=== PATIENT | male | born 1955 | race Two or more races ===

== ENCOUNTER 2023-06-10 10:43 | Emergency (ER) | payer OTHER ==
[~2023-06-10] VITALS: Ht 157.5 cm; Wt 71.7 kg
[2023-06-10 13:44] LABS: HEMATOCRIT 43.6 % (39.0-48.0); HEMOGLOBIN 14.8 g/dL (13-16.00); MEAN CELL VOLUME 88.1 fL (80.0-100.00); MEAN CORPUSCULAR HEMOGLOBIN 29.8 pg (27.00-32.0); MEAN CORPUSCULAR HGB CONC 33.9 g/dl (32.0-36.0); PLATELET COUNT 278 K/uL (150-450); RED BLOOD COUNT 4.95 M/uL (4.00-6.00); RED CELL DISTRIBUTION WIDTH 13.2 % (11.5-14.5)
[2023-06-10 13:58] LABS: URINE APPEARANCE Clear; URINE BILIRRUBIN Negative (NEGATIVE); URINE BLOOD Trace; URINE COLOR Yellow; URINE GLUCOSE Negative (NEGATIVE); URINE LEUKOCYTE Negative; URINE NITRATE Negative; URINE PROTEIN Negative (NEGATIVE)
[2023-06-10 14:01] LABS: URINE EPITHELIAL CELLS 3.8 uL (0.0-38.8); URINE RBC 11.9 uL (0.0-20.8); URINE WBC 5.7 uL (0.0-23.2)
[2023-06-10 14:19] LABS: ALBUMIN 3.7 gm/dL (3.4-5.0); BILIRUBIN TOTAL 0.39 mg/dL (0.3-1.2); CALCIUM 9.2 mg/dL (8.5-10.1); CREATININE SERUM 1.03 mg/dL (0.70-1.30); GFR 72.48; GLOBULINA 4.5 G/DL (2.4-3.5); POTASSIUM 4.04 mEq/L (3.5-5.1); TOTAL PROTEIN 8.2 gm/dL (6.4-8.2); TSH 0.954 uIU/mL (0.358-3.74)
== END 2023-06-10 17:25 ==
LOC: ER 10:43
PROVIDERS: General Practice
DX: R03.0 Elevated blood-pressure reading, without diagnosis of hypertension (principal)

== ENCOUNTER → 2023-12-06 06:07 | Outpatient (CLI) | payer OTHER ==
[2023-12-06 07:16] LABS: HEMATOCRIT 38.5 % (39.0-48.0); HEMOGLOBIN 13.3 g/dL (13-16.00); MEAN CELL VOLUME 87.7 fL (80.0-100.00); MEAN CORPUSCULAR HEMOGLOBIN 30.3 pg (27.00-32.0); MEAN CORPUSCULAR HGB CONC 34.6 g/dl (32.0-36.0); PLATELET COUNT 263 K/uL (150-450); RED BLOOD COUNT 4.39 M/uL (4.00-6.00); RED CELL DISTRIBUTION WIDTH 13.2 % (11.5-14.5)
[2023-12-06 07:17] LABS: PH,URINE 5.5 (5.0-8.0); URINE APPEARANCE Clear; URINE BILIRRUBIN Negative (NEGATIVE); URINE BLOOD Negative; URINE COLOR Yellow; URINE GLUCOSE Negative (NEGATIVE); URINE KETONE Negative (NEGATIVE); URINE LEUKOCYTE Negative; URINE NITRATE Negative; URINE PROTEIN Negative (NEGATIVE); URINE UROBILINOGEN 0.2 E.U./dl
[2023-12-06 07:21] LABS: URINE BACTERIA 30.2 uL (0.0-1933)
[2023-12-06 07:28] LABS: URINE EPITHELIAL CELLS 0.6 uL (0.0-38.8)
[2023-12-06 08:01] LABS: ALBUMIN 3.6 gm/dL (3.4-5.0); BILIRUBIN TOTAL 0.35 mg/dL (0.3-1.2); CALCIUM 8.8 mg/dL (8.5-10.1); CREATININE SERUM 0.88 mg/dL (0.70-1.30); GFR 86.91; GLOBULINA 3.6 G/DL (2.4-3.5); POTASSIUM 4.27 mEq/L (3.5-5.1); TOTAL PROTEIN 7.2 gm/dL (6.4-8.2)
== END | disposition home or self-care (01) ==
LOC: LAB 06:07
PROVIDERS: ATTEND Internal Medicine
DX: E55.9 Vitamin D deficiency, unspecified (principal); N41.0 Acute prostatitis; I10 Essential (primary) hypertension; E78.9 Disorder of lipoprotein metabolism, unspecified; Z12.11 Encounter for screening for malignant neoplasm of colon

== ENCOUNTER 2024-01-11 06:12 | Outpatient (CLI) | payer OTHER | END 2024-01-11 06:13 | disposition home or self-care (01) | LOC: LAB 06:12 | PROVIDERS: ATTEND Urology | DX: R97.20 Elevated prostate specific antigen [PSA] (principal) ==

== ENCOUNTER 2024-03-10 06:26 | Outpatient (CLI) | payer OTHER ==
[2024-03-10 07:30] LABS: HEMATOCRIT 39.5 % (39.0-48.0); HEMOGLOBIN 13.3 g/dL (13-16.00); MEAN CELL VOLUME 89.8 fL (80.0-100.00); MEAN CORPUSCULAR HEMOGLOBIN 30.3 pg (27.00-32.0); MEAN CORPUSCULAR HGB CONC 33.7 g/dl (32.0-36.0); PLATELET COUNT 255 K/uL (150-450)
[2024-03-10 07:32] LABS: URINE APPEARANCE Clear; URINE BILIRRUBIN Negative (NEGATIVE); URINE BLOOD Negative; URINE COLOR Yellow; URINE GLUCOSE Negative (NEGATIVE); URINE KETONE Negative (NEGATIVE); URINE LEUKOCYTE Negative; URINE NITRATE Negative; URINE PROTEIN Negative (NEGATIVE); URINE UROBILINOGEN 0.2 E.U./dl
[2024-03-10 07:43] LABS: URINE RBC 3.8 uL (0.0-20.8)
[2024-03-10 07:44] LABS: URINE BACTERIA 3.7 uL (0.0-1933); URINE EPITHELIAL CELLS 0.4 uL (0.0-38.8)
[2024-03-10 08:15] LABS: ALBUMIN 3.7 gm/dL (3.4-5.0); BILIRUBIN TOTAL 0.38 mg/dL (0.3-1.2); CHOL HDL RATIO 4.4 (0-5.0); CREATININE SERUM 0.96 mg/dL (0.70-1.30); GFR 78.37; GLOBULINA 3.7 G/DL (2.4-3.5); POTASSIUM 4.37 mEq/L (3.5-5.1); TOTAL PROTEIN 7.4 gm/dL (6.4-8.2)
== END 2024-03-10 06:32 | disposition home or self-care (01) ==
LOC: LAB 06:26
PROVIDERS: ATTEND Internal Medicine
DX: E55.9 Vitamin D deficiency, unspecified (principal); I10 Essential (primary) hypertension; N41.0 Acute prostatitis; E78.9 Disorder of lipoprotein metabolism, unspecified; Z12.11 Encounter for screening for malignant neoplasm of colon

== ENCOUNTER 2024-03-20 09:22 | Outpatient (CLI) | payer OTHER | END 2024-03-20 09:38 | disposition home or self-care (01) | LOC: TOM 09:22 | DX: R97.20 Elevated prostate specific antigen [PSA] (principal); C61 Malignant neoplasm of prostate ==

== ENCOUNTER 2024-06-16 06:13 | Outpatient (CLI) | payer OTHER ==
[2024-06-16 07:10] LABS: PH,URINE 5.5 (5.0-8.0); URINE APPEARANCE Clear; URINE BILIRRUBIN Negative (NEGATIVE); URINE BLOOD Negative; URINE COLOR Yellow; URINE GLUCOSE Negative (NEGATIVE); URINE KETONE Negative (NEGATIVE); URINE LEUKOCYTE Negative; URINE NITRATE Negative; URINE PROTEIN Negative (NEGATIVE); URINE UROBILINOGEN 0.2 E.U./dl
[2024-06-16 07:11] LABS: URINE BACTERIA 8.5 uL (0.0-1933); URINE RBC 4.4 uL (0.0-20.8); URINE WBC 2.3 uL (0.0-23.2)
[2024-06-16 07:19] LABS: URINE EPITHELIAL CELLS 0.1 uL (0.0-38.8)
[2024-06-16 07:32] LABS: HEMATOCRIT 41.2 % (39.0-48.0); HEMOGLOBIN 14.2 g/dL (13-16.00); MEAN CELL VOLUME 88.8 fL (80.0-100.00); MEAN CORPUSCULAR HEMOGLOBIN 30.6 pg (27.00-32.0); MEAN CORPUSCULAR HGB CONC 34.5 g/dl (32.0-36.0); PLATELET COUNT 258 K/uL (150-450); RED BLOOD COUNT 4.64 M/uL (4.00-6.00)
[2024-06-16 07:56] LABS: ALBUMIN 3.6 gm/dL (3.4-5.0); BILIRUBIN TOTAL 0.48 mg/dL (0.3-1.2); CALCIUM 9.2 mg/dL (8.5-10.1); CREATININE SERUM 0.91 mg/dL (0.70-1.30); GFR 83.36; GLOBULINA 3.9 G/DL (2.4-3.5); POTASSIUM 4.51 mEq/L (3.5-5.1); TOTAL PROTEIN 7.5 gm/dL (6.4-8.2)
== END 2024-06-16 06:17 | disposition home or self-care (01) ==
LOC: LAB 06:13
PROVIDERS: ATTEND Internal Medicine
DX: I10 Essential (primary) hypertension (principal); E55.9 Vitamin D deficiency, unspecified; N41.0 Acute prostatitis; E78.9 Disorder of lipoprotein metabolism, unspecified; R97.20 Elevated prostate specific antigen [PSA]; Z12.11 Encounter for screening for malignant neoplasm of colon

== ENCOUNTER 2024-06-30 06:22 | Outpatient (CLI) | payer OTHER ==
[2024-06-30 07:22] LABS: HEMATOCRIT 40.4 % (39.0-48.0); HEMOGLOBIN 13.8 g/dL (13-16.00); MEAN CORPUSCULAR HEMOGLOBIN 30.4 pg (27.00-32.0); MEAN CORPUSCULAR HGB CONC 34.1 g/dl (32.0-36.0); PLATELET COUNT 246 K/uL (150-450); RED BLOOD COUNT 4.54 M/uL (4.00-6.00); RED CELL DISTRIBUTION WIDTH 12.7 % (11.5-14.5)
[2024-06-30 07:30] LABS: PH,URINE 7.5 (5.0-8.0); URINE APPEARANCE Clear; URINE BILIRRUBIN Negative (NEGATIVE); URINE BLOOD Negative; URINE COLOR Yellow; URINE GLUCOSE Negative (NEGATIVE); URINE KETONE Negative (NEGATIVE); URINE LEUKOCYTE Negative; URINE NITRATE Negative; URINE PROTEIN Negative (NEGATIVE); URINE UROBILINOGEN 0.2 E.U./dl
[2024-06-30 07:32] LABS: URINE BACTERIA 14.6 uL (0.0-1933); URINE EPITHELIAL CELLS 2.1 uL (0.0-38.8); URINE RBC 7.5 uL (0.0-20.8); URINE WBC 2.9 uL (0.0-23.2)
[2024-06-30 07:56] LABS: INR 0.99; PARTIAL THROMBOPLASTIN TIME 25.1 SECONDS (22.0-34.0); PROTHROMBIN TIME 10.8 SECONDS (9.0-11.5)
[2024-06-30 08:29] LABS: ALBUMIN 3.5 gm/dL (3.4-5.0); BILIRUBIN TOTAL 0.5 mg/dL (0.3-1.2); CALCIUM 8.9 mg/dL (8.5-10.1); CREATININE SERUM 0.9 mg/dL (0.70-1.30); GFR 84.43; GLOBULINA 3.5 G/DL (2.4-3.5); POTASSIUM 4.95 mEq/L (3.5-5.1)
[2024-06-30 08:34] LABS: PROSTATIC SPECIFIC ANTIGEN 10.2 NG/ML (0.010-4.00)
[2024-06-30 09:42] LABS: RH POSITIVE
[2024-07-01 12:09] LABS: % FREE PSA 7.6 % (.); free psa 0.7 ng/mL; total psa 9.2 ng/mL (0.0-4.0)
== END 2024-06-30 06:25 | disposition home or self-care (01) ==
LOC: LAB 06:22
DX: C61 Malignant neoplasm of prostate (principal)

== ENCOUNTER → 2024-09-23 06:18 | Outpatient (CLI) | payer OTHER ==
[2024-09-23 07:15] LABS: BASO % 0.4 % (0.1-1.2); EOS # 0.36 (0.04-0.54); EOS % 4.7 % (0.7-7.0); HEMATOCRIT 39.1 % (40.1-51.0); LYMPH # 2.45 (1.18-3.74); LYMPH % 32.2 % (19.3-53.1); MEAN CORPUSCULAR HEMOGLOBIN 29.3 pg (25.6-32.2); MONO # 0.77 (0.24-0.82); MONO % 10.1 % (4.7-12.5); NEUT # 3.99 (1.56-6.13); NEUT % 52.3 % (34.0-71.1); PLATELET COUNT 265 K/uL (163-369); RED BLOOD COUNT 4.44 M/uL (4.63-6.08); RED CELL DISTRIBUTION WIDTH 11.9 % (11.6-14.4)
[2024-09-23 07:58] LABS: ALBUMIN 3.6 gm/dL (3.4-5.0); BILIRUBIN TOTAL 0.36 mg/dL (0.3-1.2); CALCIUM 8.9 mg/dL (8.5-10.1); CHOL HDL RATIO 3.6 (0-5.0); CREATININE SERUM 1.12 mg/dL (0.70-1.30); GFR 65.59; GLOBULINA 3.5 G/DL (2.4-3.5); POTASSIUM 4.91 mEq/L (3.5-5.1); TOTAL PROTEIN 7.1 gm/dL (6.4-8.2)
== END | disposition home or self-care (01) ==
LOC: LAB 06:18
PROVIDERS: ATTEND Internal Medicine
DX: E55.9 Vitamin D deficiency, unspecified (principal); N41.0 Acute prostatitis; I10 Essential (primary) hypertension; E78.9 Disorder of lipoprotein metabolism, unspecified; R97.20 Elevated prostate specific antigen [PSA]; Z12.11 Encounter for screening for malignant neoplasm of colon

== ENCOUNTER 2024-11-24 06:14 | Outpatient (CLI) | payer OTHER ==
[2024-11-24 07:19] LABS: URINE APPEARANCE Clear; URINE BILIRRUBIN Negative (NEGATIVE); URINE BLOOD Negative; URINE COLOR Yellow; URINE GLUCOSE Negative (NEGATIVE); URINE KETONE Negative (NEGATIVE); URINE LEUKOCYTE Negative; URINE NITRATE Negative; URINE PROTEIN Negative (NEGATIVE); URINE UROBILINOGEN 0.2 E.U./dl
[2024-11-24 07:24] LABS: URINE EPITHELIAL CELLS 1.5 uL (0.0-38.8); URINE RBC 3.3 uL (0.0-20.8); URINE WBC 1.9 uL (0.0-23.2)
[2024-11-24 07:25] LABS: URINE BACTERIA 2.4 uL (0.0-1933); URINE CAST 0.00 uL (0.0-1.40)
[2024-11-26 17:12] LABS: % FREE PSA 8.6 % (.)
== END 2024-11-24 06:18 | disposition home or self-care (01) ==
LOC: LAB 06:14
PROVIDERS: ATTEND Urology
DX: C61 Malignant neoplasm of prostate (principal)

== ENCOUNTER → 2024-12-16 06:06 | Outpatient (CLI) | payer OTHER ==
[2024-12-16 07:05] LABS: BASO % 0.5 % (0.1-1.2); EOS # 0.23 (0.04-0.54); EOS % 3.1 % (0.7-7.0); LYMPH # 2.40 (1.18-3.74); LYMPH % 32.4 % (19.3-53.1); MEAN PLATELET VOLUME 11.00 fl (9.4-12.4); MONO # 0.75 (0.24-0.82); MONO % 10.1 % (4.7-12.5); NEUT # 3.96 (1.56-6.13); NEUT % 53.6 % (34.0-71.1); RED CELL DISTRIBUTION WIDTH 11.7 % (11.6-14.4)
[2024-12-16 07:15] LABS: URINE APPEARANCE Clear; URINE BILIRRUBIN Negative (NEGATIVE); URINE BLOOD Negative; URINE COLOR Yellow; URINE GLUCOSE Negative (NEGATIVE); URINE KETONE Negative (NEGATIVE); URINE LEUKOCYTE Negative; URINE NITRATE Negative; URINE PROTEIN Negative (NEGATIVE); URINE UROBILINOGEN 0.2 E.U./dl
[2024-12-16 07:17] LABS: URINE BACTERIA 9.5 uL (0.0-1933); URINE RBC 4.6 uL (0.0-20.8)
[2024-12-16 07:42] LABS: URINE CAST 0.00 uL (0.0-1.40); URINE EPITHELIAL CELLS 0.1 uL (0.0-38.8); URINE WBC 1.2 uL (0.0-23.2)
[2024-12-16 08:38] LABS: BUN CREA RATIO 14.0 (7.0-25.0); CREATININE SERUM 1.1 mg/dL (0.70-1.30); GFR 66.97; GLUCOSE FASTING 110.0 mg/dL (65-100); OSMOLALITY SERUM 283.0 MOSM/KG (275-295)
[2024-12-16 08:39] LABS: ALT/SGPT 28.0 U/L (12-78); AST/SGOT 13.0 U/L (15-37); BILIRUBIN TOTAL 0.48 mg/dL (0.3-1.2); CHOL HDL RATIO 5.2 (0-5.0); GLOBULINA 4.0 G/DL (2.4-3.5); HDL 40.0 mg/dl (40-60); LDL 126.0 mg/dl (0-130); PROSTATIC SPECIFIC ANTIGEN 11.0 NG/ML (0.010-4.00); VLDL 39.0 (0-39)
== END | disposition home or self-care (01) ==
LOC: LAB 06:06
PROVIDERS: ATTEND Internal Medicine
DX: I10 Essential (primary) hypertension (principal); E55.9 Vitamin D deficiency, unspecified; N41.0 Acute prostatitis; E78.9 Disorder of lipoprotein metabolism, unspecified; R97.20 Elevated prostate specific antigen [PSA]; Z12.11 Encounter for screening for malignant neoplasm of colon

== ENCOUNTER 2025-01-13 13:56 | Emergency (ER) | payer OTHER ==
[~2025-01-13] VITALS: Ht 157.5 cm; Wt 69.9 kg
[2025-01-13] MEDS ORDERED: LISINOPRIL10 MG PO (15:48)
== END 2025-01-13 17:34 | disposition home or self-care (01) ==
LOC: ER 13:56
DX: L02.221 Furuncle of abdominal wall (principal)

== ENCOUNTER 2025-03-30 06:37 | Outpatient (CLI) | payer OTHER ==
[~2025-03-30 06:37] MED LIST: LISINOPRIL10 MG PO
[2025-03-30 07:46] LABS: URINE APPEARANCE Clear; URINE BILIRRUBIN Negative (NEGATIVE); URINE BLOOD Negative; URINE COLOR Yellow; URINE GLUCOSE Negative (NEGATIVE); URINE KETONE Negative (NEGATIVE); URINE LEUKOCYTE Trace; URINE NITRATE Negative; URINE PROTEIN Negative (NEGATIVE); URINE UROBILINOGEN 0.2 E.U./dl
[2025-03-30 07:48] LABS: BASO % 0.4 % (0.1-1.2); EOS # 0.27 (0.04-0.54); EOS % 3.4 % (0.7-7.0); LYMPH # 2.54 (1.18-3.74); LYMPH % 32.0 % (19.3-53.1); MEAN PLATELET VOLUME 10.10 fl (9.4-12.4); MONO # 0.76 (0.24-0.82); MONO % 9.6 % (4.7-12.5); NEUT # 4.32 (1.56-6.13); NEUT % 54.5 % (34.0-71.1); RED CELL DISTRIBUTION WIDTH 11.6 % (11.6-14.4)
[2025-03-30 07:50] LABS: URINE BACTERIA 16.7 uL (0.0-1933); URINE RBC 6.3 uL (0.0-20.8); URINE WBC 15.6 uL (0.0-23.2)
[2025-03-30 07:56] LABS: URINE CAST 0.00 uL (0.0-1.40); URINE EPITHELIAL CELLS 1.3 uL (0.0-38.8)
[2025-03-30 08:30] LABS: ALT/SGPT 34.0 U/L (12-78); AST/SGOT 14.0 U/L (15-37); BILIRUBIN TOTAL 0.41 mg/dL (0.3-1.2); BUN CREA RATIO 24.0 (7.0-25.0); CHOL HDL RATIO 4.7 (0-5.0); CREATININE SERUM 0.97 mg/dL (0.70-1.30); GFR 77.2; GLOBULINA 3.9 G/DL (2.4-3.5); GLUCOSE FASTING 110.0 mg/dL (65-100); HDL 46.0 mg/dl (40-60); LDL 136.0 mg/dl (0-130); OSMOLALITY SERUM 286.0 MOSM/KG (275-295); VLDL 34.0 (0-39)
== END 2025-03-30 06:44 | disposition home or self-care (01) ==
LOC: LAB 06:37
PROVIDERS: ATTEND Internal Medicine
DX: I10 Essential (primary) hypertension (principal); E55.9 Vitamin D deficiency, unspecified; N41.0 Acute prostatitis; E78.9 Disorder of lipoprotein metabolism, unspecified; R97.20 Elevated prostate specific antigen [PSA]; Z12.11 Encounter for screening for malignant neoplasm of colon

== ENCOUNTER 2025-04-10 07:07 | Outpatient (CLI) | payer OTHER | END 2025-04-10 07:08 | disposition home or self-care (01) | LOC: NUCLEAR 07:07 | PROVIDERS: ATTEND Internal Medicine Cardiovascular Disease | DX: I20.1 Angina pectoris with documented spasm (principal) | CPT/HCPCS: 78452; 93017; A9500; J0153 ==